=== PATIENT | female | born 1970 ===

== ENCOUNTER 2017-01-06 10:31 | Outpatient (CLI) | payer OTHER ==
--- NOTE | 2017-01-06 16:09 | Mammography Report ---
BILATERAL DIGITAL SCREENING MAMMOGRAM with CAD: 01/06/17 CLINICAL: Routine screening. COMPARISON:None available. However, a prior mammogram was apparently done at [facility]. FINDINGS: The breasts are heterogeneously dense, which may obscure small masses. A right asymmetry on the CC view requires comparison with a prior mammogram if possible.No architectural distortion or suspicious calcifications.The left breast is negative. IMPRESSION: Right asymmetry requiring further evaluation. BI-RADS CATEGORY: 0 -- Additional Evaluation Required RECOMMENDATION: Comparison with a previous mammogram. We will attempt to obtain a prior mammogram from [facility]. If we do not obtain a prior mammogram for comparison within 30 days, a revised report will be issued recommending a recall for additional imaging of the right breast. Please be advised that the patient should not schedule an appointment for return until adequate time (at least 2 weeks) has passed for us to obtain the prior mammogram. ACR BI-RADS MAMMOGRAPHIC CODES: 0 = Needs additional imaging evaluation; 1 = Negative; 2 = Benign; 3 = Probably benign; 4 = Suspicious; 5 = Malignant; 6 = Known biopsy-proven malignancy COMMENT: 1. Dense breast tissue, i.e., adenosis, fibrocystic changes, etc., may obscure an underlying neoplasm. 2. Approximately 10% of cancers are not detected with mammography. 3. A negative mammography report should not delay biopsy if a clinically suspicious mass is present. COMMENT: Patient follow-up letters are generated via our [email or web address] application.
== END 2017-01-06 10:32 | disposition home or self-care (01) ==
LOC: SPVWC 10:31
DX: Z12.31 Encounter for screening mammogram for malignant neoplasm of breast (principal)
CPT/HCPCS: 77067; G0202

== ENCOUNTER 2017-01-27 14:33 | Outpatient (CLI) | payer OTHER ==
--- NOTE | 2017-01-27 15:38 | Ultrasound Report ---
RIGHT DIGITAL DIAGNOSTIC MAMMOGRAM and RIGHT BREAST ULTRASOUND: 01/27/17 14:33:00 CLINICAL: Recalled for asymmetry. COMPARISON:01/06/17 screening FINDINGS: Lateralmedial and spot compression CC views were performed. An oval circumscribed low density asymmetry persists on the CC spot compression view. The lateral view is negative. Ultrasound of the right breast (including all four quadrants and the retroareolar area) was performed and demonstrated three benign cysts and no solid mass. The largest cyst is at 12 o'clock 3 cm from the nipple, measures 1.2 x 0.5 x 1.0 cm and correlates with the mammographic asymmetry on the CC view. A cyst at 9 o'clock 5 cm from the nipple measures 6 x 5 x 3 mm and a cyst at 11 o'clock 3 cm from the nipple measures 1.0 x 0.9 and 0.3 cm. IMPRESSION: Benign cysts right breast. BI-RADS CATEGORY: 2 - - Benign RECOMMENDATION: Routine mammographic screening in one year. ACR BI-RADS MAMMOGRAPHIC CODES: 0 = Needs additional imaging evaluation; 1 = Negative; 2 = Benign; 3 = Probably benign; 4 = Suspicious; 5 = Malignant; 6 = Known biopsy-proven malignancy COMMENT: 1. Dense breast tissue, i.e., adenosis, fibrocystic changes, etc., may obscure an underlying neoplasm. 2. Approximately 10% of cancers are not detected with mammography. 3. A negative mammography report should not delay biopsy if a clinically suspicious mass is present. COMMENT: Patient follow-up letters are generated via our [employer] application.
== END 2017-01-27 14:34 | disposition home or self-care (01) ==
LOC: SPVWC 14:33
PROVIDERS: ATTEND Internal Medicine
DX: N60.01 Solitary cyst of right breast (principal)
CPT/HCPCS: 76641; G0206